=== PATIENT | female | born 1940 | race Caucasian/White ===

== ENCOUNTER 2016-06-20 19:43 | Emergency (ER) | payer MEDICARE, OTHER ==
--- NOTE | ~2016-06-20 | CR172 ---
[facility] A Service of [facility] & [facility] RADIOLOGY TEXT RESULTS PATIENT: LAUREN SPENCE LOCATION: [facility] : 40 UNIT #: [id number] AGE: [address]: Joselito Edgar MD SEX: F ORDER DR: [id number] [facility] [address] [place], [place] [address] [id number] E MR#: [id number] Acc #: [id number] NAME: LAUREN SPENCE. : 1940 SEX: F STUDY DATE/TIME: 06/20/2016 19:52 UNIT: [facility] ROOM: STUDY DESCRIPTION: CR Knee 3 Views Lt Attending Physician: Durga Edgar M.D. Referring Physician: Kandice Portillo M.D. Ordering Physician: Wily Patel M.D. Primary Care Physician: Kandice Portillo M.D. MEDICAL IMAGING REPORT This report is preliminary unless electronic signature is present EXAM 3 views left knee INDICATIONS Pain swelling and bruising for 3 days. Patient reportedly fell 3 weeks ago. FINDINGS No acute fracture or subluxation of the left knee is identified. This patient does have advanced degenerative changes of the left knee. This is in a tricompartmental distribution and they have significantly progressed when compared to an exam from March of 2015. This is most pronounced within the lateral and patellofemoral compartments. I do not see a suprapatellar effusion. Dense atherosclerotic involvement of the superficial femoral and popliteal arteries is noted. Overall I think the patient appears osteoporotic. IMPRESSION No acute fracture or subluxation identified. Patient does however, have advanced degenerative changes which have progressed when compared to an exam from March of 2015 Dictated by... Terrie Burnham M.D. THIS IS AN ELECTRONICALLY VERIFIED REPORT Terrie Burnham M.D. at 06/23/2016 1:18 PM AFF/rnr TD: 06/21/2016 00:41 JOB #: [id number] MEDICAL IMAGING REPORT COPY
[~2016-06-20 19:43] MED LIST: ALBUTEROL17 GM INH; AMBIEN PO; AMBIEN10 MG PO; ARICEPT5 M1 PO; ASPIRIN81 M2 PO; BENZONATATE PO; CARVEDILOL3.125 MG PO; CEFTIN500 MG PO; CIPRO PO; CLOPIDOGREL75 MG PO; COREG3.125 MG PO; CYMBALTA PO; DESYREL50 MG PO; DIFLUCAN PO; DITROPAN PO; DOCUSATE SODIU100 MG PO; DULOXETINE HCL60 MG PO; FLEXERIL PO; GABAPENTIN600 MG PO; LIPITOR PO; LOPRESSOR; LOPRESSOR PO; MACROBID100 MG PO; NEURONTIN600 MG PO; NORCO 7.5-3251 EACH PO; NORVASC PO; PRILOSEC; PROTONIX PO; PYRIDIUM100 MG PO; VITAMIN D2000 UNIT PO; VITAMIN D32000 UNIT PO; XANAX0.5 M1 PO; ZOFRAN ODT4 MG PO
== END 2016-06-20 21:00 | disposition home or self-care (01) ==
LOC: CED 19:43
DX: S86.812A Strain of other muscle(s) and tendon(s) at lower leg level, left leg, initial encounter (principal); I10 Essential (primary) hypertension; X58.XXXA Exposure to other specified factors, initial encounter; Y92.098 Other place in other non-institutional residence as the place of occurrence of the external cause
CPT/HCPCS: 73562; 99283

== ENCOUNTER 2016-08-26 20:29 | Emergency (ER) | payer MEDICARE, OTHER ==
--- NOTE | ~2016-08-26 | CT4 ---
[facility] A Service of [facility] & [facility] RADIOLOGY TEXT RESULTS PATIENT: LAUREN SPENCE LOCATION: [facility] : 40 UNIT #: [id number] AGE: [address]: Jean Marie Yoder MD SEX: F ORDER DR: [id number] [facility] [address] [place], [place] [address] [id number] E MR#: [id number] Acc #: [id number] NAME: LAUREN SPENCE. : 1940 SEX: F STUDY DATE/TIME: 08/26/2016 20:28 UNIT: [facility] ROOM: STUDY DESCRIPTION: CT Abd and Pelv Wo Cont Attending Physician: Jean Marie Yoder M.D. Ordering Physician: Jean Marie Yoder M.D. Primary Care Physician: Kandice Portillo M.D. MEDICAL IMAGING REPORT This report is preliminary unless electronic signature is present EXAM CT abdomen and pelvis without IV contrast. COMPARISON December 31, 2015 INDICATIONS 76-year-old female with lower abdominal pain and nausea for [address] exam was performed with one or more of the following radiation dose reduction techniques: automatic exposure control, adjustment of mA and/or kV according to patient size, and iterative reconstruction. FINDINGS Axial CT imaging of the abdomen and pelvis was performed without IV contrast. Coronal and sagittal reformats were constructed. Lack of IV contrast limits evaluation of adenopathy, vasculature and viscera. There is stable nodular density in the 6 o'clock right breast when allowing for slight difference in breast positioning. This has features suggestive of a normal island of glandular tissue, measuring up to approximately a centimeter in size. Calcified injection granulomas within the subcutaneous fat overlying the gluteus musculature bilaterally. 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 There are multilevel degenerative facet changes of the lumbar spine. There is a healed fracture of the left fifth lateral rib. No acute fractures or suspicious osseous lesions. There is multilevel degenerative disc disease of the lumbar spine with severe degenerative endplate change at L3-L4 where there is grade 1 retrolisthesis. There is also posterior disc osteophyte complex at this level with posterior disc protrusions at L4-L5 and L5-S1. Atelectasis in the right middle lobe where there is also volume loss. [facility]. [facility] A Service of [facility] & [facility] RADIOLOGY TEXT RESULTS PATIENT: LAUREN SPENCE LOCATION: [facility] : 40 UNIT #: [id number] AGE: [address]: Jean Marie Yoder MD SEX: F ORDER DR: Dense multivessel coronary artery calcifications. There are calcifications at the level of the aortic valve as well. There is stable dystrophic calcification at the margin of the left aspect of the liver with findings suggestive of prior partial hepatic resection. Patient is post cholecystectomy. There is stable dilatation of the common bile duct, a finding which can be seen post cholecystectomy. No radiopaque choledocholithiasis. No focal pancreatic abnormality is seen. No evidence of bowel obstruction. The patient is post hysterectomy. Urinary bladder is unremarkable. The appendix is not definitely seen and may be surgically absent. Prior small bowel excision with reanastomosis, grossly stable. No free fluid or pneumoperitoneum. There is persistent lobulation and/or scarring of the kidneys. The left kidney appears atrophic. A calcification in the right kidney favored to be vascular. There may be a single punctate nonobstructive right renal calculus. No hydronephrosis or hydroureter. Adrenal glands and spleen are unremarkable. No evidence of adenopathy. Normal caliber of the abdominal aorta. There is diffuse arterial calcification involving the abdominal aorta extending to the origins of the celiac, superior mesenteric and bilateral renal arteries and extending to the femoral arteries bilaterally. IMPRESSION 1. No acute abnormality of the abdomen, pelvis or imaged lower chest. 2. Changes of hysterectomy are again noted. The appendix is not definitely seen and may be surgically absent. Patient is also post cholecystectomy and post partial resection of the small bowel. There is also a stable finding suggesting partial hepatic resection. 3. Calcification of the aortic valve. Correlation to exclude signs of aortic valvular stenosis recommended. There are coronary artery calcifications as well as arterial calcifications throughout the abdomen and pelvis as described. 4. Multilevel degenerative change of the lumbar spine most significant for posterior disc protrusions. 5. Punctate nonobstructive right renal calculus. 6. Grossly stable subcentimeter nodular density in the 6 o'clock right breast. Continued annual screening mammography is recommended. Dictated by... Ramón Sandra M.D. THIS IS AN ELECTRONICALLY VERIFIED REPORT Ramón Sandra M.D. at 08/31/2016 7:18 PM ENEDELIA/sheridan TD: 08/26/2016 23:14 JOB #: [id number] MEDICAL IMAGING REPORT [facility] A Service of [facility] RADIOLOGY TEXT RESULTS PATIENT: LAUREN SPENCE LOCATION: [facility] : 40 UNIT #: [id number] AGE: [address]: Jean Marie Yoder MD SEX: F ORDER DR: Page 1 of 1 COPY
[2016-08-26 19:40] LABS: URINE SOURCE CLEAN CATCH
[2016-08-26 19:47] LABS: URINE APPEARANCE CLEAR; URINE BILIRUBIN NEG (NEG); URINE BLOOD NEG (NEG); URINE COLOR YELLOW; URINE GLUCOSE NEG (NEG); URINE KETONE NEG (NEG); URINE LEUKOCYTE ESTERASE NEG (NEG); URINE NITRATE NEG (NEG); URINE PROTEIN 2+ (NEG); URINE SPECIFIC GRAVITY 1.013 (1.003-1.035); URINE UROBILINOGEN 0.2 MG/DL (NEG)
[2016-08-26 19:48] LABS: U HYALINE CASTS AUWI 0-2 /[LPF]; URINE BACTERIA AUWI NEG (NEGATIVE); URINE SQUAMOUS EPITHELIAL CELL NONE SEEN /[HPF]; UWBCS1 AUWI 0-2 (0-5)
[2016-08-26 19:49] LABS: CULTURE INDICATED? NO
[2016-08-26 20:13] LABS: BASOPHIL# 0.1 X10e3 (0-0.3); BASOPHIL% 0.9 % (0-2.5); EOSINOPHIL# 0.3 X10e3 (0-0.7); HEMATOCRIT 38.3 % (35.0-45.0); HEMOGLOBIN 11.8 gm/dL (12.0-16.0); LYMPHOCYTE# 2.2 X10e3 (1.0-3.5); LYMPHOCYTE% 14.8 % (17.0-45.0); MEAN CELL VOLUME 85.9 FL (83-96); MEAN CORPUSCULAR HEMOGLOBIN 26.6 PG (28-34); MONOCYTE# 0.9 X10e3 (0-1.0); MONOCYTE% 6.4 % (3.0-12.0); NEUTROPHIL% 75.9 % (40-75); RED BLOOD COUNT 4.46 X10e (3.90-5.30); RED CELL DISTRIBUTION WIDTH 15.8 % (11.0-15.5); WHITE BLOOD COUNT 14.5 X10e3 (4.0-10.5)
[2016-08-26 20:29] LABS: PLATELET COUNT 231 X10e3 (140-420)
[2016-08-26 20:30] LABS: DIFF IND NO
[2016-08-26 20:32] LABS: ALBUMIN SERUM 3.9 g/dL (3.5-5.0); ALKALINE PHOSPHATASE 80 U/L (32-92); ALT (SGPT) 12 U/L (10-40); AST (SGOT) 17 U/L (10-42); BILIRUBIN,TOTAL 0.3 mg/dL (0.2-2.0); BLOOD UREA NITROGEN 21 mg/dL (9-23); BUN/CREATININE RATIO 13.12; CALCIUM SERUM 8.8 mg/dL (8.4-10.2); CARBON DIOXIDE 22 mmol/L (22-31); CHLORIDE 104 mmol/L (100-111); CREATININE SERUM 1.6 mg/dL (0.6-1.4); GLUCOSE FASTING 113 mg/dL (70-110); PROTEIN TOTAL SERUM 7.2 g/dL (6.0-8.3); SODIUM 136 mmol/L (135-145)
[2016-08-26 20:33] LABS: BILIRUBIN, DIRECT <0.1 mg/dL (0.0-0.2); BILIRUBIN,INDIRECT 0.2 mg/dL (0.0-0.9)
== END 2016-08-26 22:15 | disposition home or self-care (01) ==
LOC: CED 20:29
PROVIDERS: Emergency Medicine
DX: R30.0 Dysuria (principal); I10 Essential (primary) hypertension
CPT/HCPCS: 36415; 74176; 80048; 80076; 81003; 85025; 96374; 99284; J1885

== ENCOUNTER 2016-11-29 17:24 | Emergency (ER) | payer MEDICARE, OTHER ==
--- NOTE | ~2016-11-29 | CT71 ---
[facility] A Service [facility] RADIOLOGY TEXT RESULTS PATIENT: LAUREN SPENCE LOCATION: SED : 40 UNIT #: [id number] AGE: [address]: Marcella Weaver MD SEX: F ORDER DR: [id number] [address] [address] [id number] E MR#: [id number] Acc #: [id number] NAME: LAUREN SPENCE : 1940 SEX: F STUDY DATE/TIME: 11/29/2016 18:32 UNIT: SED ROOM: STUDY DESCRIPTION: CT Head Wo Contrast Attending Physician: Marcella Weaver M.D. Ordering Physician: Marcella Weaver M.D. Primary Care Physician: Kandice Portillo M.D. MEDICAL IMAGING REPORT This report is preliminary unless electronic signature is present. EXAM Noncontrast head CT. HISTORY Headache for over a week. Worse with movement. COMPARISON STUDIES Comparison head CT at 01/29/[address] exam was performed with one or more of the following radiation dose reduction techniques: automatic exposure control, adjustment of mA and/or kV according to patient size, and iterative reconstruction. FINDINGS Axial noncontrast imaging brain demonstrates mild atrophy. Old lacunar infarct right basal ganglia. No large vessel infarct. No mass or hemorrhage. Small amount of right sphenoid sinus mucosal disease. Remainder the visualized sinuses unremarkable. Skull base and mastoids appear normal. IMPRESSION 1. No acute intracranial abnormality identified. Old right basal ganglia lacunar infarct. 2. The right sphenoid sinus mucosal thickening and mucosal disease. This is new from January 2016. Dictated by... Martine Santiago M.D. [facility] A Service [facility] RADIOLOGY TEXT RESULTS PATIENT: LAUREN SPENCE LOCATION: SED : 40 UNIT #: [id number] AGE: [address]: Marcella Weaver MD SEX: F ORDER DR: THIS IS AN ELECTRONICALLY VERIFIED REPORT JDave Nigel Santiago, M.D. at 11/29/2016 9:39 PM Charmaine TD: 11/29/2016 20:32 JOB #: [id number] MEDICAL IMAGING REPORT Page 1 of 1
[2016-11-29] MEDS ORDERED: BLOOD PRESSURE MED PO (17:26)
[2016-11-29] MEDS ORDERED: ASPIRIN PO (17:27)
[2016-11-29] MEDS ORDERED: IMDUR PO (17:27)
[2016-11-29] MEDS ORDERED: PLAVIX PO (17:27)
[2016-11-29 18:16] LABS: BASOPHIL# 0.1 X10e3 (0-0.3); BASOPHIL% 1.1 % (0-2.5); EOSINOPHIL# 0.2 X10e3 (0-0.7); EOSINOPHIL% 1.9 % (0.0-7.0); HEMATOCRIT 34.8 % (35.0-45.0); HEMOGLOBIN 11.2 gm/dL (12.0-16.0); LYMPHOCYTE# 1.6 X10e3 (1.0-3.5); LYMPHOCYTE% 18.7 % (17.0-45.0); MEAN CELL VOLUME 86.1 FL (83-96); MEAN CORPUSCULAR HEMOGLOBIN 27.8 PG (28-34); MEAN CORPUSCULAR HGB CONC 32.2 g/dL (30-36); MEAN PLATELET VOLUME 7.3 FL (6.5-11.5); MONOCYTE# 0.5 X10e3 (0-1.0); MONOCYTE% 6.1 % (3.0-12.0); NEUTROPHIL# 6.1 X10e3 (1.5-7.1); NEUTROPHIL% 72.2 % (40-75); PLATELET COUNT 325 X10e3 (140-420); RED BLOOD COUNT 4.04 X10e (3.90-5.30); RED CELL DISTRIBUTION WIDTH 17.3 % (11.0-15.5); WHITE BLOOD COUNT 8.5 X10e3 (4.0-10.5)
[2016-11-29 18:28] LABS: DIFF IND NO
[2016-11-29 18:29] LABS: URINE SOURCE CLEAN CATCH
[2016-11-29 18:31] LABS: INR 1.1
[2016-11-29 18:33] LABS: MICRO INDICATED? YES; URINE APPEARANCE CLEAR; URINE BILIRUBIN NEG (NEG); URINE BLOOD NEG (NEG); URINE COLOR YELLOW; URINE GLUCOSE NEG (NORM); URINE KETONE NEG (NEG); URINE LEUKOCYTE ESTERASE NEG (NEG); URINE NITRATE NEG (NEG); URINE PH 5.5 (5-8); URINE PROTEIN 3+ (NEG); URINE SPECIFIC GRAVITY 1.025 (1.003-1.035); URINE UROBILINOGEN 0.2 MG/DL (NORM)
[2016-11-29 18:39] LABS: CULTURE INDICATED? YES; PARTIAL THROMBOPLASTIN TIME 26.9 SECONDS (25.6-38.1); URINE BACTERIA 1+ (NEG); URINE CRYSTALS OTHER /[HPF]; URINE GRANULAR CAST 0-2 /[HPF]; URINE HYALINE CAST 0-2 /[HPF]; URINE SQUAMOUS EPITHELIAL CELL MODERATE /[HPF]
[2016-11-29 18:42] LABS: ALBUMIN SERUM 3.4 g/dL (3.5-5.0); ALKALINE PHOSPHATASE 66 U/L (32-92); ALT (SGPT) 8 U/L (10-40); AST (SGOT) 16 U/L (10-42); BILIRUBIN,TOTAL 0.2 mg/dL (0.2-2.0); BLOOD UREA NITROGEN 20 mg/dL (9-23); BUN/CREATININE RATIO 11.76; CALCIUM SERUM 8.9 mg/dL (8.4-10.2); CARBON DIOXIDE 24 mmol/L (22-31); CHLORIDE 108 mmol/L (100-111); CREATININE SERUM 1.7 mg/dL (0.6-1.4); GLOM FILT RATE Estimated 28.8 mL/min (>60); GLUCOSE FASTING 160 mg/dL (70-110); POTASSIUM 3.9 mmol/L (3.5-5.1); PROTEIN TOTAL SERUM 7.3 g/dL (6.0-8.3); SODIUM 140 mmol/L (135-145)
[2016-11-29 18:43] LABS: BILIRUBIN, DIRECT <0.1 mg/dL (0.0-0.2); BILIRUBIN,INDIRECT 0.1 mg/dL (0.0-0.9)
== END 2016-11-29 19:55 | disposition home or self-care (01) ==
LOC: SED 17:24
PROVIDERS: Student in an Organized Health Care Education/Training Program
DX: R51 Headache (principal); N39.0 Urinary tract infection, site not specified; I10 Essential (primary) hypertension; Z90.49 Acquired absence of other specified parts of digestive tract; Z90.710 Acquired absence of both cervix and uterus; Z79.899 Other long term (current) drug therapy
CPT/HCPCS: 36415; 70450; 80048; 80076; 81003; 85025; 85610; 85730; 87086; 96361; 96374; 96375; 99284; J0360; J1170; J2405

== ENCOUNTER 2016-12-24 14:03 | Emergency (ER) | payer MEDICARE, OTHER ==
[~2016-12-24 14:03] MED LIST changes: +ASPIRIN PO; +BLOOD PRESSURE MED PO; +IMDUR PO; +PLAVIX PO
[2016-12-24] MEDS ORDERED: PROTONIX PO (14:16)
[2016-12-24] MEDS ORDERED: IMDUR-ER60 MG PO (14:16)
[2016-12-24] MEDS ORDERED: ATORVASTATIN CA10 MG PO (14:17)
[2016-12-24] MEDS ORDERED: AMITRYPTYLINE PO (14:17)
[2016-12-24] MEDS ORDERED: DONEPEZIL HCL10 MG PO (14:17)
[2016-12-24] MEDS ORDERED: PROZAC PO (14:17)
[2016-12-24] MEDS ORDERED: CARVEDILOL25 MG PO (14:17)
[2016-12-24] MEDS ORDERED: CLOPIDOGREL75 MG PO (14:18)
[2016-12-24] MEDS ORDERED: DITROPAN XL15 MG (14:18)
[2016-12-24] MEDS ORDERED: AMLODIPINE BESY10 MG PO (14:18)
[2016-12-24] MEDS ORDERED: VITAMIN D32000 UNIT PO (14:18)
[2016-12-24] MEDS ORDERED: ST JOSEPH ASPIR81 MG PO (14:19)
[2016-12-24 15:07] LABS: URINE SOURCE CLEAN CATCH
[2016-12-24 15:09] LABS: URINE APPEARANCE CLEAR; URINE BILIRUBIN NEG (NEG); URINE BLOOD TRACE-INTACT (NEG); URINE COLOR YELLOW; URINE GLUCOSE NEG (NORM); URINE KETONE NEG (NEG); URINE LEUKOCYTE ESTERASE NEG (NEG); URINE NITRATE NEG (NEG); URINE PROTEIN 2+ (NEG); URINE UROBILINOGEN 0.2 MG/DL (NORM)
[2016-12-24 15:18] LABS: MICRO INDICATED? YES
[2016-12-24 15:22] LABS: BASOPHIL# 0.1 X10e3 (0-0.3); BASOPHIL% 0.7 % (0-2.5); EOSINOPHIL# 0.2 X10e3 (0-0.7); EOSINOPHIL% 1.8 % (0.0-7.0); HEMATOCRIT 33.4 % (35.0-45.0); HEMOGLOBIN 10.8 gm/dL (12.0-16.0); LYMPHOCYTE# 1.4 X10e3 (1.0-3.5); LYMPHOCYTE% 16.1 % (17.0-45.0); MEAN CELL VOLUME 85.1 FL (83-96); MEAN CORPUSCULAR HEMOGLOBIN 27.5 PG (28-34); MEAN CORPUSCULAR HGB CONC 32.2 g/dL (30-36); MEAN PLATELET VOLUME 7.6 FL (6.5-11.5); MONOCYTE# 0.5 X10e3 (0-1.0); MONOCYTE% 6.4 % (3.0-12.0); NEUTROPHIL# 6.4 X10e3 (1.5-7.1); PLATELET COUNT 256 X10e3 (140-420); RED BLOOD COUNT 3.92 X10e (3.90-5.30); RED CELL DISTRIBUTION WIDTH 16.9 % (11.0-15.5); WHITE BLOOD COUNT 8.5 X10e3 (4.0-10.5)
[2016-12-24 15:36] LABS: CULTURE INDICATED? YES; URINE BACTERIA 1+ (NEG); URINE RBC 0-2 /[HPF] (0-2); URINE SQUAMOUS EPITHELIAL CELL MANY /[HPF]; URINE WBC 0-2 /[HPF] (0-5)
[2016-12-24 15:42] LABS: ALBUMIN SERUM 3.5 g/dL (3.5-5.0); BILIRUBIN, DIRECT 0.1 mg/dL (0.0-0.2); BILIRUBIN,INDIRECT 0.4 mg/dL (0.0-0.9); BILIRUBIN,TOTAL 0.5 mg/dL (0.2-2.0); BUN/CREATININE RATIO 12.66; CALCIUM SERUM 8.5 mg/dL (8.4-10.2); CREATININE SERUM 1.5 mg/dL (0.6-1.4); DIFF IND NO; GLOM FILT RATE Estimated 33.5 mL/min (>60); POTASSIUM 4.3 mmol/L (3.5-5.1); PROTEIN TOTAL SERUM 6.9 g/dL (6.0-8.3)
== END 2016-12-24 17:09 | disposition home or self-care (01) ==
LOC: SED 14:03
PROVIDERS: Emergency Medicine
DX: R11.2 Nausea with vomiting, unspecified (principal); Z79.899 Other long term (current) drug therapy; Z79.82 Long term (current) use of aspirin
CPT/HCPCS: 36415; 80048; 80076; 81003; 83690; 85025; 87086; 99284